=== PATIENT | female | born 1990 | race Caucasian/White ===

== ENCOUNTER 2019-09-01 08:34 | Day surgery (SDC) | payer OTHER ==
[~2019-09-01] VITALS: Ht 172.7 cm; Wt 59.4 kg
[~2019-09-01 08:34] MED LIST: DEXAMETHASONE 4 MG/ML, 1ML ONE; FENTANYL PF 250 MCG/5ML ONE; GLYCOPYRROLATE 0.2MG/1ML, 5ML ONE; LIDOCAINE-MPF 2% ,5ML ONE; MIDAZOLAM 1 MG/ML, 2ML ONE; PROPOFOL 10 MG/ML, 20ML ONE; ROCURONIUM 10MG/ML,5ML ONE
[2019-09-01] MEDS ORDERED: HYDROmorphone 2 MG/ML, 1ML IVPush PRN (09:00)
[2019-09-01] MEDS ORDERED: KETOROLAC 30 MG/1 ML IV PRN (09:00)
[2019-09-01] MEDS ORDERED: METOCLOPRAMIDE 5 MG/ML, 2ML IV PRN (09:00)
[2019-09-01] MEDS ORDERED: MORPHINE SULFATE 4 MG/ML, 1ML IVPush PRN (09:00)
[2019-09-01] MEDS ORDERED: MEPERIDINE/PF 25MG/ML,1ML IVPush PRN (09:00)
[2019-09-01] MEDS ORDERED: HYDROcodone/APAP 7.5-325MG/15ML UDC PO PRN (09:00)
[2019-09-01] MEDS ORDERED: ONDANSETRON 2MG/ML, 2ML IV PRN (09:00)
[2019-09-01] MEDS ORDERED: LABETALOL 5MG/ML, 20ML IV PRN (09:00)
[2019-09-01] MEDS ORDERED: MIDAZOLAM 1 MG/ML, 2ML IV PRN (09:00)
[2019-09-01] MEDS ORDERED: DEXAMETHASONE 4 MG/ML, 1ML IV PRN (09:00)
[2019-09-01] MEDS ORDERED: DIPHENHYDRAMINE 50 MG/ML, 1ML IVPush PRN (09:00)
[2019-09-01] MEDS ORDERED: EPHEDRINE 50 MG/ML, 1ML IVPush PRN (09:00)
[2019-09-01] MEDS ORDERED: EPHEDRINE 50 MG/ML, 1ML IM PRN (09:00)
[2019-09-01] MEDS ORDERED: ALBUTEROL/IPRATROPIUM 2.5MG/0.5MG, 3 ML NPPB PRN (09:00)
[2019-09-01] MEDS ORDERED: OXYcodone 5 MG/5 ML ORAL.SOL UDC PO PRN (09:00)
[2019-09-01] MEDS ORDERED: hydrALAzine 20 MG/ML, 1ML IV PRN (09:00)
[2019-09-01] MEDS ORDERED: SCOPOLAMINE PATCH, 1.5MG PATCH.TD72 TD PRN (09:00)
[2019-09-01] MEDS ORDERED: LACTATED RINGERS 1,000 ML IV SCH (09:24)
[2019-09-01] MEDS ORDERED: NONE PER PT (09:25)
[2019-09-01] MEDS ORDERED: PLEASE ENTER HEIGHT AND WEIGHT MC SCH (09:30)
[2019-09-01] MEDS ORDERED: PLEASE ENTER ALLERGIES MC SCH (09:30)
[2019-09-01] MEDS ORDERED: BUPIVACAINE/PF-EPI 0.25% 1:200K ONE (09:36)
[2019-09-01] MEDS ORDERED: SILVER NITRATE STICK TP ONE (09:36)
[2019-09-01 09:41] VITALS: BP 126/81
[2019-09-01 09:43] LABS: HCG UR SG 1.019 (1.003-1.030)
[2019-09-01] MEDS ORDERED: METHYLENE BLUE 10 MG/ML 10ML IV ONE (10:00)
[2019-09-01] MEDS ORDERED: SCOPOLAMINE PATCH, 1.5MG PATCH.TD72 TD ONE (10:30)
[2019-09-01] MEDS ORDERED: BUPIVACAINE/PF-EPI 0.25% 1:200K INFIL ONE (10:54)
[2019-09-01] MEDS ORDERED: METHYLENE BLUE 10 MG/ML 10ML INJ ONE (10:55)
[2019-09-01] MEDS ORDERED: ROPIvacaine/PF 0.5%, 30 ML ONE (11:12)
[2019-09-01] MEDS: FENTANYL PF 100 MCG/2ML IV PRN ×3 (12:24→13:05)
[2019-09-01] MEDS ORDERED: FENTANYL PF 100 MCG/2ML ONE (12:24)
[2019-09-01] MEDS ORDERED: KETOROLAC 30 MG/1 ML ONE (12:24)
[2019-09-01] MEDS ORDERED: MEPERIDINE/PF 25MG/ML,1ML ONE (12:24)
[2019-09-01] MEDS ORDERED: OXYcodone 5 MG/5 ML ORAL.SOL UDC ONE (13:07)
== END 2019-09-01 19:35 | disposition home or self-care (01) ==
LOC: OUT 08:34 → EDSTATUS 10:30 → OUT 19:35
PROVIDERS: ATTEND Specialist
DX: N94.6 Dysmenorrhea, unspecified (principal); N80.3 Endometriosis of pelvic peritoneum; N80.1 Endometriosis of ovary; Z79.899 Other long term (current) drug therapy
CPT/HCPCS: 58662; 81025; 88305; J1100; J1885; J2175; J2250; J2704; J2795; J3010; J7120; Q9968